=== PATIENT | female | born 1970 | race Caucasian/White ===

== ENCOUNTER 2020-03-27 09:14 | Outpatient (RCR) | payer OTHER ==
[2020-03-20 12:21] VITALS: BP 167/99
[2020-03-20 13:38] LABS: BASOPHILS % (AUTO) 1 % (0-10); EOSINOPHILS # (AUTO) 0.2 10^3/uL (0.0-0.3); EOSINOPHILS % (AUTO) 4 % (0-10); HEMATOCRIT 43 % (35-52); HEMOGLOBIN 13.9 G/DL (11.5-16.0); LYMPHOCYTES # (AUTO) 1.7 X 10^3 (1.0-4.0); LYMPHOCYTES % (AUTO) 26 % (12-44); MEAN CORPUSCULAR HEMOGLOBIN 27 PG (25-34); MEAN CORPUSCULAR HGB CONC 32 G/DL (32-36); MEAN CORPUSCULAR VOLUME 84 FL (80-99); MEAN PLATELET VOLUME 12.4 FL (7.4-10.4); MONOCYTES # (AUTO) 0.4 X 10^3 (0.0-1.0); MONOCYTES % (AUTO) 6 % (0-12); NEUTROPHILS # (AUTO) 4.1 X 10^3 (1.8-7.8); NEUTROPHILS % (AUTO) 64 % (42-75); PLATELET COUNT 200 10^3/uL (130-400); RED CELL DISTRIBUTION WIDTH 14.2 % (10.0-14.5); WHITE BLOOD COUNT 6.4 10^3/uL (4.3-11.0)
[~2020-03-27] VITALS: Ht 154 cm; Wt 117.0 kg
[~2020-03-27 09:14] MED LIST: ASCO100025 PO; BUDE10.22 IH; FISH1CAP15 PO; FLUT9.9S NS; HYDR25TA4 PO; LORA10TA7 PO; METF-397 PO; METR45CR TP; RT-ALBUINH IH; VIT1CAPS4 PO
== END 2020-03-27 16:28 | disposition home or self-care (01) ==
LOC: PREOP 09:14
PROVIDERS: ATTEND Obstetrics & Gynecology
DX: Z01.812 Encounter for preprocedural laboratory examination (principal); N94.6 Dysmenorrhea, unspecified; N81.10 Cystocele, unspecified
CPT/HCPCS: 36415; 85025; 86850; 86900; 86901; 87081; 87635

== ENCOUNTER → 2020-06-19 | Outpatient (CLI) | payer OTHER ==
[~2020-06-19] MED LIST changes: +DCS100C PO; +HYDR-34 PO; +IBUP-844 PO; +SIME80TA16 PO
== END ==
LOC: RAD 14:36
PROVIDERS: ATTEND Nurse Practitioner Family
DX: Z12.31 Encounter for screening mammogram for malignant neoplasm of breast (principal)
CPT/HCPCS: 77063; 77067

== ENCOUNTER 2020-07-30 16:03 | Outpatient (CLI) | payer OTHER ==
[~2020-07-30] VITALS: Ht 154 cm; Wt 115.0 kg
[~2020-07-30 16:03] MED LIST changes: +CHOL20003 PO; +ZINC50TA11 PO
== END 2020-07-30 16:04 | disposition home or self-care (01) ==
LOC: PREOP 16:03
PROVIDERS: ATTEND Surgery
DX: Z01.818 Encounter for other preprocedural examination (principal)

== ENCOUNTER 2020-08-05 04:14 | Emergency (ER) | payer OTHER ==
[~2020-08-05] VITALS: Ht 154 cm; Wt 115.6 kg
[2020-08-05] MEDS ORDERED: methylPREDNISolone 125 MG (Solu-MEDROL) VIAL IV STA (04:32)
[2020-08-05] MEDS ORDERED: diphenhydrAMINE 50 MG/ML INJ (BENADRYL) IV STA (04:32)
[2020-08-05] MEDS ORDERED: FAMOTIDINE 20MG/2ML IV (PEPCID) IV STA (04:32)
--- NOTE | 2020-08-05 04:38 | ED EENT ---
History of Present Illness General Chief Complaint: Eye Problems Stated Complaint: ALLERGIC RXN TO FACE & EYES Source: patient History of Present Illness Date Seen by Provider: Aug 05, 2020 Time Seen by Provider: 04:23 Initial Comments PT ARRIVES VIA POV FROM HOME STATES AROUND 1900 TONIGHT, HER EYES STARTED FEELING HOT, AND ITCHY AR0UND 0030, SHE WOKE UP AND BOTH OF HER EYES AND LIDS WERE RED, SWOLLEN, VERY WATERY, ITCHING, BURNING NO PURULENT DRAINAGE THINKS SHE IS HAVING AN ALLERGIC REACTION TO SOMETHING PT HAS ENVIRONMENTAL ALLERGIES AND TAKES LORATIDINE, FLONASE, SYMBICORT DAILY AND PRO-AIR NEEDED DID NOT TAKE ANY ADDITIONAL MEDICATION, BUT DID USE FRESH EYES EYE DROPS WITHOUT IMPROVEMENT NO RASH OR ITCHING OR SYMPTOMS ANYWHERE ELSE ON HER BODY NO HISTORY OF ANY SIMILAR REACTION LIKE THIS PT HAS NOT HAD ANY RECENT ILLNESS, NO FEVER ,NO SORE THROAT NO SWELLING TO LIPS OR TONGUE OR THROAT NO DIFFICULTY BREATHING NO KNOWN EXPOSURE TO PINK EYE PT DOES NOT WEAR CONTACTS, ONLY READING GLASSES DENIES ANY NEW SOAPS, SHAMPOOS, ETC. DENIES ANY HAND LOTIONS, HAND SANITIZERS, ETC. 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 John CRONIN Allergies and Home Medications Allergies Coded Allergies: ampicillin (Verified Allergy, Mild, RASH, 08/05/20) gentamicin (Verified Allergy, Mild, RASH, 08/05/20) theophylline (Verified Allergy, Mild, VOMITTING, 08/05/20) Penicillins (Verified Allergy, Unknown, FROM CHILDHOOD, 08/05/20) Home Medications Albuterol Sulfate 1 Puff Puff, 2 PUFF IH Q4H PRN for SHORTNESS OF BREATH, (Reported) 1 PUFF = 90 MCG Ascorbic Acid 1,000 Mg Tablet.er, 2,000 MG PO DAILY, (Reported) Budesonide/Formoterol Fumarate 10.2 Gm Hfa.aer.ad, 1 PUFF IH DAILY, (Reported) Cholecalciferol (Vitamin D3) 50 Mcg Capsule, 50 MCG PO DAILY, (Reported) Fish Oil/Dha/Epa 1 Each Capsule, 1 EACH PO DAILY, (Reported) Fluticasone Propionate 9.9 Ml [place].susp, 2 SPRAY NS DAILY, (Reported) 2 SPRAYS PER NOSTRIL DAILY X 2 DAYS THEN 1 SPRAY DAILY Hydrochlorothiazide 25 Mg Tablet, 25 MG PO DAILY, (Reported) Loratadine 10 Mg Tablet, 10 MG PO DAILY, (Reported) Metformin HCl 500 Mg Tablet, 500 MG PO BID, (Reported) Olopatadine HCl 5 Ml Drops, 2 DROP OP DAILY Prescribed by: TEJ DANGELO on 08/05/2034 Prednisolone Acetate/Pf 5 Ml Drops.susp, 2 DROPS OU QID Prescribed by: TEJ DANGELO on 08/05/20633 Vit C/Jasso & Celery Ex/Grp E 1 Each Capsule, 1 EACH PO DAILY, (Reported) Zinc Gluconate 50 Mg Tablet, 50 MG PO DAILY, (Reported) Patient Home Medication List Home Medication List Reviewed: Yes Review of Systems Review of Systems Constitutional: no symptoms reported Eyes: See HPI Ears: No Symptoms Reported Nose: other (NOSE IS NOW RUNNY DUE TO WATERY ITCHY EYES) Mouth: no symptoms reported Throat: no symptoms reported Respiratory: no symptoms reported Cardiovascular: no symptoms reported Gastrointestinal: no symptoms reported Musculoskeletal: no symptoms reported Skin: see HPI Neurological: No Symptoms Reported Hematologic/Lymphatic: No Symptoms Reported Immunological/Allergic: see HPI Past Lmvwxju-Cknfvv-Ogyigf Hx Past Med/Social Hx: Reviewed and Corrections made Patient Social History 2nd Hand Smoke Exposure: No Recent Foreign Travel: No Contact w/Someone Who Travel: No Recent Hopitalizations: No Seasonal Allergies Seasonal Allergies: Yes Past Medical History Surgeries: Yes (HIATAL HERNIA REPAIR) Abdominal, Gallbladder, Hysterectomy, Oophorectomy Respiratory: Yes Asthma Currently Using CPAP: No Currently Using BIPAP: No Cardiac: Yes Hypertension Neurological: Yes Headaches /Migraines Female Reproductive Disorders: Denies [employer]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 Sexually Transmitted Disease: No HIV/AIDS: No Genitourinary: No Gastrointestinal: Yes Gastroesophageal Reflux, Chronic Constipation, Chronic Diarrhea Musculoskeletal: Yes Chronic Back Pain Endocrine: Yes (OBESITY) Diabetes, Non-Insulin dep HEENT: No Loss of Vision: Denies Hearing Impairment: Denies Cancer: No Psychosocial: Yes Anxiety Integumentary: Yes Eczema Blood Disorders: Yes (HX ANEMIA) Adverse Reaction/Blood Tranf: No (N/A) Physical Exam Vital Signs Vital Signs - First Documented 08/05/20 04:20 Temp 37.1 Pulse 109 Resp 20 B/P (MAP) 166/102 (123) Pulse Ox 96 Height, Weight, BMI Height: '" Weight: lbs. oz. 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, no motor/sensory deficits, alert, normal mood/affect, oriented x 3 Skin: normal color, warm/dry Progress/Results/Core Measures Results/Orders My Orders Orders - TEJ DANGELO DO Ed Iv/Invasive Line Start (08/05/20 04:32) Diphenhydramine Injection (Benadryl Inje (08/05/20 04:32) Methylprednisolone Sod Succ (Solu-Medrol (08/05/20 04:32) Famotidine Injection (Pepcid Injection) (08/05/20 04:32) Ketorolac Injection (Toradol Injection) (08/05/20 05:15) Prednisolone 1% Ophthalmic Elaine (Pred For (08/05/20 05:45) Tetracaine 0.5% Ophth Lorena Sdv (Tetracai (08/05/20 05:49) Tetracaine 0.5% Ophth Lorena Sdv (Tetracai (08/05/20 06:00) Medications Given in ED Vital Signs/I&O Progress Progress Note : Progress Note GIVEN IV BENADRYL, PEPCID AND SOLU-MEDROL--NO SIGNIFICANT IMPROVEMENT TETRACAINE INSTILLED WITH SOME IMPROVEMENT IN DISCOMFORT Departure Communication (Admissions) 0600--SPOKE WITH DR. PALMER, SHE WILL SEE THE PT IN OFFICE THIS MORNING. AGREES WITH STEROID EYE DROPS AND ANTIHISTAMINE EYE DROPS--PATADAY. Impression Primary Impression: Allergic conjunctivitis of both eyes and rhinitis Disposition: 01 HOME, SELF-CARE Condition: Stable Departure-Patient Inst. Referrals: [facility] (PCP) Primary Care Physician ADA CRONIN APRN (Family) Primary Care Physician BENIGNO CHAN OD Patient Instructions: Conjunctivitis (Noninfectious Pinkeye) (DC), How to Use Eye Drops, Seasonal Allergies (DC) Add. Discharge Instructions: USE EYE DROPS PRESCRIBED FOLLOW UP WITH DR. PALMER TODAY--CALL OFFICE AT 0800 TO SCHEDULE APPOINTMENT LATER TODAY YOU MAY HAVE YOUR COLONOSCOPY TODAY SCHEDULED IF YOU WISH DO NOT RUB EYES All discharge instructions reviewed with patient and/or family. Voiced understanding. Scripts Olopatadine HCl (Pataday) 5 Ml Drops 2 DROP OP DAILY, #1 EA Prov: TEJ DANGELO DO 08/05/20 Prednisolone Acetate/Pf (Prednisolone Acet 1% Eye Drop) 5 Ml Drops.susp 2 DROPS OU QID, #1 UNIT Prov: TEJ DANGELO DO 08/05/20 TEJ DANGELO DO Aug 05, 2020 04:38
[2020-08-05] MEDS ORDERED: KETOROLAC 30 MG/ML VIAL IVP ONE (05:15)
[2020-08-05] MEDS ORDERED: prednisoLONE 1% OPTH (PRED FORTE) 5 ML BTL OU SCH (05:45)
[2020-08-05] MEDS ORDERED: TETRACAINE 0.5% OPHTH SOLN 4 ML BTL (SINGLE DOSE ONLY) ONE (05:49)
[2020-08-05] MEDS ORDERED: TETRACAINE 0.5% OPHTH SOLN 4 ML BTL (SINGLE DOSE ONLY) OU ONE (06:00)
[2020-08-05] MEDS ORDERED: NF-OLOP5ML OP (06:34)
[2020-08-05] MEDS ORDERED: PRED5DRO24 OU (06:34)
[2020-08-05 06:55] VITALS: BP 145/89
== END 2020-08-05 06:54 | disposition home or self-care (01) ==
LOC: EDUNIT# 04:14 → ER 04:16
DX: H10.13 Acute atopic conjunctivitis, bilateral (principal); J45.909 Unspecified asthma, uncomplicated; I10 Essential (primary) hypertension; E66.9 Obesity, unspecified; E11.9 Type 2 diabetes mellitus without complications; Z88.0 Allergy status to penicillin; Z88.1 Allergy status to other antibiotic agents; Z88.8 Allergy status to other drugs, medicaments and biological substances; Z20.828 Contact with and (suspected) exposure to other viral communicable diseases; Z79.52 Long term (current) use of systemic steroids; Z79.84 Long term (current) use of oral hypoglycemic drugs

== ENCOUNTER → 2020-09-22 | Outpatient (CLI) | payer OTHER ==
[~2020-09-22] MED LIST changes: +HOLD METFORMIN - RECEIVED CONTRAST 20 ML VIAL IV SCH; +IOHEXOL 350 MG/ML 100 ML (OMNIPAQUE 350) VIAL IV ONE; +NF-OLOP5ML OP; +NS 100 ML (IVPB) BAG IV ONE; +PRED5DRO24 OU
--- NOTE | 2020-09-22 09:31 | Diagnostic Imaging Report ---
PROCEDURE: CT chest with contrast only. TECHNIQUE: Multiple contiguous axial images were obtained through the chest after administration of intravenous contrast. Auto Exposure Controls were utilized during the CT exam to meet ALARA standards for radiation dose reduction. DATE: September 22, 2020. COMPARISON: None. INDICATION: 50-year-old female, persistent asthma and shortness of breath. Tachycardia. FINDINGS: There is a pleurally based right upper lobe pulmonary nodule posteriorly on axial image 41 measuring 5 mm in size. There is a 4 mm nodule in the superior aspect of the left lower lobe on axial image 59. There are small focal areas of mild reticulonodularity such as in the right lower lobe on axial image 75 and in the right lower lobe on axial image 87 as well as in the right lower lobe on axial image 106. This is also present in the left upper lobe on axial image 74. There is no additional lung consolidation. There is no pneumothorax. There is no pleural effusion. The central airways are patent. There is no identified central pulmonary embolus. The main pulmonary artery diameter is within normal limits and measures 2.6 cm. The heart is not enlarged. There is no pericardial effusion. There is no abnormally enlarged mediastinal, hilar, or axillary lymph node which meets CT size criteria for adenopathy. The patient is status post cholecystectomy. There does appear to be diffuse fatty infiltration of the liver. There are degenerative changes of the spine. There is a sclerotic lesion in the T7 vertebral body measuring 10 mm in size with internal attenuation of 1367 Hounsfield units. This may relate to a benign bone island. There are also sclerotic lesions of the T1 vertebral body and upper sternum. There is also a small sclerotic bone lesion of the right glenoid and T12 vertebral body. These are not able to be definitively characterized. IMPRESSION: 1. There is a 5 mm pleurally based right upper lobe pulmonary nodule and a 4 mm noncalcified right lower lobe pulmonary nodule. Recommend followup CT chest without contrast in 6 months to evaluate for stability. 2. Small focal areas of mild reticulonodularity in both lungs. Considerations would include a process spreading via endobronchial means such as an infectious bronchiolitis or aspiration. This is of uncertain exact acuity without comparison imaging. Recommend correlation clinically. 3. Diffuse fatty infiltration of the liver. 4. Scattered sclerotic bone lesions which may relate to benign bone islands although are not able to be definitively characterized on this study. Dictated by: Dictated on workstation # [id number]
== END ==
LOC: RAD 08:45
PROVIDERS: ATTEND Pediatrics
DX: J45.41 Moderate persistent asthma with (acute) exacerbation (principal); K76.0 Fatty (change of) liver, not elsewhere classified; M89.9 Disorder of bone, unspecified; R91.8 Other nonspecific abnormal finding of lung field
CPT/HCPCS: 71260

== ENCOUNTER → 2020-10-27 | Outpatient (CLI) | payer OTHER ==
[~2020-10-27] MED LIST changes: -HOLD METFORMIN - RECEIVED CONTRAST 20 ML VIAL IV SCH; -IOHEXOL 350 MG/ML 100 ML (OMNIPAQUE 350) VIAL IV ONE; -NS 100 ML (IVPB) BAG IV ONE; +RT-ALBUTEROL SULF 2.5 MG/3 ML PRE-MIX VIAL INH ONE
== END ==
LOC: RT 10:30
PROVIDERS: ATTEND Nurse Practitioner Family
DX: J45.40 Moderate persistent asthma, uncomplicated (principal)
CPT/HCPCS: 94060; 94726; 94729

== ENCOUNTER → 2021-08-27 | Outpatient (CLI) | payer OTHER ==
[~2021-08-27] MED LIST changes: -DCS100C PO; +DOCU-239 PO; -RT-ALBUTEROL SULF 2.5 MG/3 ML PRE-MIX VIAL INH ONE
--- NOTE | 2021-08-27 22:32 | Diagnostic Imaging Report ---
INDICATION: Routine screening. COMPARISON: Prior mammograms from 06/19/2020 and 12/10/2016. EXAMINATION: 2D and 3D bilateral screening mammography was performed with CAD. The current study was also evaluated with a Computer Aided Detection (CAD) system. FINDINGS: Both breasts are heterogeneously dense, limiting the sensitivity of mammography. There are scattered benign-appearing calcifications in both breasts. No mass or malignant-appearing microcalcifications are seen. Axillae are unremarkable. IMPRESSION: No mammographic features suspicious for malignancy are identified. ACR BI-RADS Category 2: Benign findings. Result letter will be mailed to the patient. Note: At least 10% of breast cancer is not imaged by mammography. Dictated by: Dictated on workstation # [id number]
== END ==
LOC: RAD 10:21
PROVIDERS: ATTEND Obstetrics & Gynecology
DX: Z12.31 Encounter for screening mammogram for malignant neoplasm of breast (principal)
CPT/HCPCS: 77063; 77067